=== PATIENT | male | born 1955 | race Caucasian/White ===

== ENCOUNTER 2021-12-12 23:51 | Emergency (ER) | payer BC ==
[~2021-12-12] VITALS: Ht 172.7 cm; Wt 81.6 kg
[2021-12-13 00:18] LABS: BASO % 0.2 % (0.0-1.0); EOS # 0.1 10*3/uL (0.0-0.4); EOS % 1.6 % (1.0-4.0); HEMATOCRIT 45.2 % (42.0-52.0); LYMPH # 2.6 10*3/uL (1.3-4.4); MEAN CELL VOLUME 86.1 fl (80.0-94.0); MEAN CORPUSCULAR HGB 26.9 pg (27.0-31.0); MEAN CORPUSCULAR HGB CONC 31.2 g/dl (33.0-37.0); MEAN PLATELET VOLUME 10.6 fl (9.6-12.3); MONO # 0.4 10*3/uL (0.1-1.0); MONO % 6.3 % (3.0-9.0); NEUT # 2.7 10*3/uL (2.3-7.9); NEUT % 46.7 % (47.0-73.0); PLATELET COUNT AUTOMATED 175 10*3/uL (130-400); RED BLOOD COUNT 5.25 10*6/uL (4.50-5.90); RED CELL DISTRI WIDTH 14.8 % (0-14.5); WHITE BLOOD COUNT 5.7 10*3/uL (4.8-10.8)
[2021-12-13 00:34] LABS: ACT PARTIAL THROMBO TIME 29.9 SECONDS (20.0-32.1); INTERNATIONAL NORM RATIO 0.9 (2.0-3.5)
[2021-12-13 00:35] LABS: ALKALINE PHOSPHATASE 81 U/L (45-117); BUN 10 mg/dl (7-24); CHLORIDE 108 mmol/L (98-107); CREATININE 0.93 mg/dL (0.70-1.30); POTASSIUM 3.5 mmol/L (3.5-5.1); SGOT/AST 15 IU/L (3-35); SGPT/ALT 22 U/L (12-78); SODIUM 141 mmol/L (136-145); TOTAL PROTEIN 6.9 gm/dL (6.4-8.2)
== END 2021-12-13 01:18 | disposition left against medical advice (07) ==
LOC: ED 23:51
PROVIDERS: Emergency Medicine
DX: R06.02 Shortness of breath (principal); R09.81 Nasal congestion; R05.9 Cough, unspecified